=== PATIENT | male | born 1975 | race Hispanic/Latino ===

== ENCOUNTER 2022-01-20 15:16 | Emergency (ER) | payer SELFPAY ==
[2022-01-20] MEDS ORDERED: ONDANSETRON 4 MG/2 ML VIAL ONE (16:10)
[2022-01-20] MEDS ORDERED: MORPHINE 4 MG/ML SYR ONE (16:10)
[2022-01-20] MEDS ORDERED: NA CHLORIDE 0.9% 1,000 ML ONE ×2 (16:10→17:21)
[2022-01-20 16:32] LABS: Urine Blood Negative (Negative); Urine Glucose 2+ (Negative); Urine Protein Negative (Negative); Urine pH 5.5 (5.0-7.0)
[2022-01-20 16:34] LABS: Absolute Lymphocytes (CBC) 1.5 K/uL (0.7-4.9); Hematocrit 48.2 % (39.6-49.0); Lymphocytes % 30.5 % (15.3-44.8); MCV 88.7 fL (80-100); RBC Red Blood Cell Count 5.43 M/uL (4.33-5.43)
[2022-01-20 16:40] LABS: Urine Mucus Slight /HPF (None Seen); Urine RBC <5 /HPF (None Seen)
[2022-01-20 17:07] LABS: Albumin 3.7 g/dL (3.4-5.0); Bilirubin Total 1.1 mg/dL (0.2-1.0); Potassium 4.1 mmol/L (3.5-5.1); Protein, Total 7.5 g/dL (6.4-8.2)
--- NOTE | 2022-01-20 17:15 | RAD REPORT ---
EXAM DESCRIPTION: CT - Stone Protocol - 01/20/2022 4:47 pm CLINICAL HISTORY: Abdominal pain. Right flank pain COMPARISON: None. TECHNIQUE: Computed axial tomography of the abdomen pelvis was obtained without oral or IV contrast. Lack of IV and oral contrast limits evaluation of solid organs, appendix, bowel, and vessels. Powell l reformatted images were obtained and reviewed. All CT scans are performed using dose optimization technique as appropriate and may include automated exposure control or mA/KV adjustment according to patient size. FINDINGS: Tiny bilateral renal calculi. No hydronephrosis. A ureteral calculus is not seen. No bladd er calculus. Small left renal cyst. Partial duplication right pyelocalyceal structures The liver, spleen, pancreas and adrenals appear grossly normal There is no evidence of diverticulitis. The appendix appears normal 15 millimeter partial ground-glass opacity left lower lobe IMPRESSION: Tiny nonobstructing renal calculi 15 millimeter partial ground-glass opacities left lower lobe probably inflammatory/infectious. Howevmika r, as neoplasm can have a similar appearance it is recommended that patient have a followup CT chest 3 months
[2022-01-20] MEDS ORDERED: INSULIN -REGULAR HUMAN 50 UNIT/0.5 ML ML ONE (17:20)
--- NOTE | 2022-01-20 18:38 | RAD REPORT ---
EXAM DESCRIPTION: US - Abdomen Exam Limited - 01/20/2022 6:11 pm CLINICAL HISTORY: Abdominal pain. COMPARISON: None. FINDINGS: The gallbladder wall is not thickened. A gallstone is not seen. The biliary tree is normal caliber. IMPRESSION: Unremarkable gallbladder ultrasound.
--- NOTE | 2022-01-20 18:48 | EDPHYS ---
Physician Documentation [facility] Name: Sandeep Cowan Age: 46 yrs Sex: Male : 1975 Arrival Date: 01/20/2022 Time: 15:18 Bed 14 Private MD: ED Physician Luciano Garcia HPI: 01/20 16:05 This 46 yrs old Male presents to ER via Ambulatory with complaints of Possible cp Kidney Stone. 16:05 The patient complains of pain in the right flank. cp 16:05 The pain radiates to the abdomen. Onset: The symptoms/episode began/occurred this morning, about 0130. Associated signs and symptoms: Pertinent negatives: diarrhea, dysuria, fever, pain radiating to the lower extremities, vomiting. Severity of pain: in the emergency department the pain is unchanged despite home interventions. The patient has experienced similar episodes in the past, today's symptoms are similar, to when the patient was apparently diagnosed with kidney stones. Historical: - Allergies: 15:29 No Known Allergies; ss - Home Meds: 15:29 None [Active]; ss - PMHx: 15:29 Kidney stone; ss - PSHx: 15:29 Jaw reconstruction; ss - Immunization history:: Client reports having NOT received the Covid vaccine. - Social history:: Smoking status: Patient reports use of chewing tobacco. ROS: 16:10 Constitutional: Negative for body aches, chills, fever, poor PO intake. cp 16:10 Eyes: Negative for injury, pain, redness, and discharge. cp 16:10 ENT: Negative for drainage from ear(s), ear pain, sore throat, difficulty swallowing, difficulty handling secretions. 16:10 Cardiovascular: Negative for chest pain, palpitations. 16:10 Respiratory: Negative for cough, shortness of breath, wheezing. 16:10 Abdomen/GI: Negative for vomiting, diarrhea, constipation. 16:10 Back: Positive for flank pain, on the right. 16:10 : Negative for urinary symptoms. 16:10 Neuro: Negative for altered mental status, dizziness, headache, weakness. 16:10 All other systems are negative. Exam: 16:15 Constitutional: The patient appears in no acute distress, alert, awake, non-toxic, well cp developed, well nourished. 16:15 Head/Face: Normocephalic, atraumatic. cp 16:15 Eyes: Periorbital structures: appear normal, Conjunctiva: normal, no exudate, no injection, Sclera: no appreciated abnormality, Lids and lashes: appear normal, bilaterally. 16:15 ENT: External ear(s): are unremarkable, Nose: is normal, Mouth: Lips: moist, Oral mucosa: pink and intact, moist, Posterior pharynx: Airway: no evidence of obstruction, patent. 16:15 Chest/axilla: Inspection: normal. 16:15 Cardiovascular: Rate: normal, Rhythm: regular. 16:15 Respiratory: the patient does not display signs of respiratory distress, Respirations: normal, no use of accessory muscles, no retractions, labored breathing, is not present, Breath sounds: are clear throughout, no decreased breath sounds, no stridor, no wheezing. 16:15 Abdomen/GI: Inspection: abdomen appears normal, Bowel sounds: active, all quadrants, Palpation: soft, in all quadrants, moderate abdominal tenderness, in the anterior aspect of right lateral abdomen and posterior aspect of right lateral abdomen, rebound tenderness, is not appreciated, involuntary guarding, is not appreciated. 16:15 Neuro: Orientation: to person, place \T\ time. Mentation: is normal, Motor: moves all fours, strength is normal, Sensation: is normal, Gait: is steady, at a normal pace, without difficulty. Vital Signs: 15:28 Weight 95.25 kg; Height 6 ft. 2 in. (187.96 cm); Pain 5/10; ss 17:02 BP 144 / 106; Pulse 91; Resp 18 S; Pulse Ox 96% on R/A; kc6 17:47 BP 155 / 97; Pulse 99; Resp 18 S; Pulse Ox 99% on R/A; kc6 18:47 BP 155 / 97; Pulse 97; Resp 18 S; Pulse Ox 97% on R/A; kc6 15:28 Body Mass Index 26.96 (95.25 kg, 187.96 cm) ss MDM: 15:40 Patient medically screened. cp 18:47 Data reviewed: vital signs, nurses notes, lab test result(s), radiologic studies, CT cp scan. 18:47 Differential diagnosis: nephrolithiasis, pyelonephritis, UTI, testicular torsion. cp Counseling: I had a detailed discussion with the patient and/or guardian regarding: the historical points, exam findings, and any diagnostic results supporting the discharge/admit diagnosis, lab results, radiology results, to return to the emergency department if symptoms worsen or persist or if there are any questions or concerns that arise at home. Response to treatment: the patient's symptoms have markedly improved after treatment, VSS. Pain improved with meds. CT negative for ureter calculus at this time. Will discharge to home for continued monitoring. 12/ 16:01 Order name: CBC with Diff; Complete Time: 16:59 cp 12/ 16:59 Interpretation: Normal except: MN% 12.4. cp 12/ 16:01 Order name: CMP; Complete Time: 17:12 01/20 17:12 Interpretation: Normal except: NA 133; GLUC 436; ALK 121; BILIT 1.1; GLOB 3.8; A/G 1.0. 12/ 16:01 Order name: Lipase; Complete Time: 17:12 12 17:12 Interpretation: Reviewed. 12 16:01 Order name: Urine Microscopic Only; Complete Time: 16:59 cp 12 16:01 Order name: CT Stone Protocol; Complete Time: 17:32 cp 12/ 16:32 Order name: Urine Dipstick-Ancillary; Complete Time: 16:59 EDMS 01/20 17:12 Interpretation: Normal except: UGLUC 2+. 12/ 16:01 Order name: IV Saline Lock; Complete Time: 16:26 12 16:01 Order name: Labs collected and sent; Complete Time: 16:26 12 17:34 Order name: US Abdomen Limited: gallbladder; Complete Time: 18:43 cp 12/ 18:43 Interpretation: Report reviewed. 12 16:01 Order name: Urine Dipstick-Ancillary (obtain specimen); Complete Time: 16:45 cp 12/ 16:59 Order name: NPO; Complete Time: 17:00 01/20 18:44 Order name: Accucheck Blood Glucose; Complete Time: 18:53 cp Administered Medications: 16:26 Drug: NS 0.9% 1000 ml Route: IV; Rate: 1 bolus; Site: right forearm; kc6 16:26 Drug: Zofran (Ondansetron) 4 mg Route: IVP; Site: right forearm; kc6 17:03 Follow up: Response: No adverse reaction; Nausea is decreased [facility] 16:26 Drug: morphine 4 mg Route: IVP; Infused Over: 4 mins; Site: right forearm; kc6 17:03 Follow up: Response: No adverse reaction; Pain is decreased; RASS: Alert and Calm (0) [facility] 17:24 Drug: Insulin Regular Human 10 units {Co-Signature: [email or web address] (Willian Chowdhury RN).} Route: kc6 IVP; Site: right forearm; 17:42 Drug: NS 0.9% 1000 ml Route: IV; Rate: 1 bolus; Site: right forearm; kc6 Disposition Summary: 01/20/22 18:47 Discharge Ordered Location: Home cp Problem: new cp Symptoms: have improved cp Condition: Stable cp Diagnosis - Dorsalgia, unspecified cp - Diabetes mellitus due to underlying condition with hyperglycemia cp - Calculus of kidney - bilateral(01/20/22 18:49) cp Followup: cp - With: Private Physician - When: 2 - 3 days - Reason: Recheck today's complaints Discharge Instructions: - Discharge Summary Sheet cp - Acute Back Pain, Adult cp - Hyperglycemia cp - Kidney Stones cp - Blood Glucose Monitoring, Adult cp - Diabetes Mellitus and Nutrition, Adult cp - Dietary Guidelines to Help Prevent Kidney Stones cp Forms: - Medication Reconciliation Form cp - Thank You Letter cp - Antibiotic Education cp - Prescription Opioid Use cp Prescriptions: - Diclofenac Sodium 75 mg Oral Tablet Sustained Release - take 1 tablet by ORAL route 2 times per day; 30 tablet; Refills: 0, Product cp Selection Permitted - Zithromax Z-Jovan 250 mg Oral Tablet - take 1 tablet by ORAL route as directed for 5 days Day 1 - take two (2) tablets cp one time. Day 2, 3, 4 , 5 take one (1) tablet once daily.; 6 tablet; Refills: 0, Product Selection Permitted - Metformin 1,000 mg Oral Tablet - take 0.5 tablet by ORAL route every 12 hours with morning and evening meals; 20 cp tablet; Refills: 0, Product Selection Permitted Signatures: Dispatcher [employer] Ekaterina Medina RN RN ss Page, Corey, PA PA cp Rosalba Shahid RN RN kc6 Willian Chowdhury RN jd3 Corrections: (The following items were deleted from the chart) 17:12 17:12 Normal except: NA 133; GLUC 436; ALK 121; BILIT 1.1. cp cp 18:49 18:48 Calculus of kidney cp cp
--- NOTE | 2022-01-20 18:48 | ER ---
Nurse's Notes [facility] Name: Sandeep Cowan Age: 46 yrs Sex: Male : 1975 Arrival Date: 01/20/2022 Time: 15:18 Bed 14 Private MD: Diagnosis: Dorsalgia, unspecified;Diabetes mellitus due to underlying condition with hyperglycemia;Calculus of kidney-bilateral Presentation: 01/20 15:28 Chief complaint: Patient states: R flank pain that began at 0130 this morning. Pt ss reports that this pain feels similar to his previous kidney stone. Pt states, "I know I passed one because I felt it move down. I know I have some that were in my kidney that they couldn't break up.". Coronavirus screen: Client denies travel out of the [place] in the last 14 days. Ebola Screen: Patient denies exposure to infectious person. Patient denies travel to an Ebola-affected area in the 21 days before illness onset. Initial Sepsis Screen: Does the patient meet any 2 criteria? No. Patient's initial sepsis screen is negative. Does the patient have a suspected source of infection? No. Patient's initial sepsis screen is negative. Risk Assessment: Do you want to hurt yourself or someone else? Patient reports no desire to harm self or others. Onset of symptoms was January 20, 2022. 15:28 Method Of Arrival: Ambulatory 15:28 Acuity: MARTHA 3 ss Historical: - Allergies: 15:29 No Known Allergies; ss - Home Meds: 15:29 None [Active]; ss - PMHx: 15:29 Kidney stone; ss - PSHx: 15:29 Jaw reconstruction; ss - Immunization history:: Client reports having NOT received the Covid vaccine. - Social history:: Smoking status: Patient reports use of chewing tobacco. Screenin:52 Abuse screen: Denies threats or abuse. Denies injuries from another. Nutritional kc6 screening: No deficits noted. Tuberculosis screening: No symptoms or risk factors identified. Fall Risk None identified. Assessment: 15:49 General: Appears in no apparent distress. uncomfortable, Behavior is calm, cooperative, kc6 appropriate for age. Pain: Complains of pain in right low back Pain does not radiate. Pain currently is 6 out of 10 on a pain scale. Quality of pain is described as sharp, stabbing, Pain began gradually, Is intermittent, Alleviated by rest, Aggravated by increased activity, repositioning, Noted to be grimacing, Also complains of no other associated symptoms. Neuro: Raphael Agitation-Sedation Scale (RASS): 0 - Alert and Calm Level of Consciousness is awake, alert, obeys commands, Oriented to person, place, time, situation, Appropriate for age. Cardiovascular: Heart tones S1 S2 present Capillary refill < 3 seconds. Respiratory: Airway is patent Trachea midline Respiratory effort is even, unlabored, Respiratory pattern is regular, symmetrical, Breath sounds are clear bilaterally. GI: Abdomen is flat, non-distended, Bowel sounds present X 4 quads. Abd is soft and non tender X 4 quads. Reports nausea, vomiting. : No signs and/or symptoms were reported regarding the genitourinary system. EENT: No signs and/or symptoms were reported regarding the EENT system. Derm: No signs and/or symptoms reported regarding the dermatologic system. Skin is intact, Skin is pink, warm \\T\\ dry. Musculoskeletal: No signs and/or symptoms reported regarding the musculoskeletal system. Circulation, motion, and sensation intact. Capillary refill < 3 seconds, Range of motion: intact in all extremities. 16:49 Reassessment: Patient appears in no apparent distress at this time. No changes from kc6 previously documented assessment. Patient and/or family updated on plan of care and expected duration. Pain level reassessed. Patient is alert, oriented x 3, equal unlabored respirations, skin warm/dry/pink. 17:47 Reassessment: Patient appears in no apparent distress at this time. No changes from kc6 previously documented assessment. Patient and/or family updated on plan of care and expected duration. Pain level reassessed. Patient is alert, oriented x 3, equal unlabored respirations, skin warm/dry/pink. 18:47 Reassessment: Patient appears in no apparent distress at this time. No changes from kc6 previously documented assessment. Patient and/or family updated on plan of care and expected duration. Pain level reassessed. Patient is alert, oriented x 3, equal unlabored respirations, skin warm/dry/pink. Vital Signs: 15:28 Weight 95.25 kg; Height 6 ft. 2 in. (187.96 cm); Pain 5/10; ss 17:02 BP 144 / 106; Pulse 91; Resp 18 S; Pulse Ox 96% on R/A; kc6 17:47 BP 155 / 97; Pulse 99; Resp 18 S; Pulse Ox 99% on R/A; kc6 18:47 BP 155 / 97; Pulse 97; Resp 18 S; Pulse Ox 97% on R/A; kc6 15:28 Body Mass Index 26.96 (95.25 kg, 187.96 cm) ED Course: 15:18 Patient arrived in ED. mr 15:20 Angelito Smyth PA is PHCP. cp 15:20 Luciano Garcia MD is Attending Physician. cp 15:29 Triage completed. ss 15:29 Arm band placed on right wrist. ss 15:46 Rosalba Shahid, FABY is Primary Nurse. kc6 16:26 CBC with Diff Sent. kc6 16:26 CMP Sent. kc6 16:26 Lipase Sent. kc6 16:26 Inserted saline lock: 20 gauge in right forearm, using aseptic technique. Blood kc6 collected. 16:49 CT Stone Protocol In Process Unspecified. EDMS 18:13 US Abdomen Limited: gallbladder In Process Unspecified. EDMS 19:01 No provider procedures requiring assistance completed. IV discontinued, intact, kc6 bleeding controlled, No redness/swelling at site. Pressure dressing applied. 19:02 Patient has correct armband on for positive identification. Bed in low position. Call kc6 light in reach. Side rails up X 1. Administered Medications: 16:26 Drug: NS 0.9% 1000 ml Route: IV; Rate: 1 bolus; Site: right forearm; kc6 16:26 Drug: Zofran (Ondansetron) 4 mg Route: IVP; Site: right forearm; kc6 17:03 Follow up: Response: No adverse reaction; Nausea is decreased kc6 16:26 Drug: morphine 4 mg Route: IVP; Infused Over: 4 mins; Site: right forearm; kc6 17:03 Follow up: Response: No adverse reaction; Pain is decreased; RASS: Alert and Calm (0) kc6 17:24 Drug: Insulin Regular Human 10 units {Co-Signature: [email or web address] (Willian Chowdhury RN).} Route: kc6 IVP; Site: right forearm; 17:42 Drug: NS 0.9% 1000 ml Route: IV; Rate: 1 bolus; Site: right forearm; kc6 Medication: 19:02 VIS not applicable for this client. kc6 Outcome: 18:47 Discharge ordered by . jeff 19:01 Discharged to home ambulatory. kc6 19:01 Condition: stable 19:01 Discharge instructions given to patient, Instructed on discharge instructions, follow up and referral plans. medication usage, Demonstrated understanding of instructions, follow-up care, medications, Prescriptions given X 3. 19:03 Patient left the ED. kc6 Signatures: Dispatcher [employer] DEONUT Connie Red Shelby, RN RN Angelito Wright, HARRIS PA Rosalba Young RN RN kc6 Willian Chowdhury RN jd3
[2022-01-20 23:55] VITALS: BP 155/97
[2022-01-21 00:16] VITALS: O2SAT 97
== END 2022-01-20 19:03 | disposition home or self-care (01) ==
LOC: ER 15:16
DX: N20.0 Calculus of kidney (principal); E11.65 Type 2 diabetes mellitus with hyperglycemia
CPT/HCPCS: 36415; 74176; 76377; 76705; 80053; 81003; 81015; 82947; 83690; 85025; 96374; 96375; 99284; J1815; J2405; J7030

== ENCOUNTER 2022-02-01 14:43 | Emergency (ER) | payer SELFPAY ==
[2022-02-01] MEDS ORDERED: KETOROLAC 30 MG/ML INJ ONE (15:13)
[2022-02-01] MEDS ORDERED: methocarbamoL 750 MG TAB ONE (15:13)
--- NOTE | 2022-02-01 15:30 | ER ---
Nurse's Notes [facility] Name: Sandeep Cowan Age: 46 yrs Sex: Male : 1975 Arrival Date: 02/01/2022 Time: 14:45 Bed 8 Private MD: Diagnosis: Muscle spasm of back Presentation: 02/01 14:54 Chief complaint: Low back pain that radiates to left leg x 3 days. Coronavirus screen: hb At this time, the client does not indicate any symptoms associated with coronavirus-19. Ebola Screen: No symptoms or risks identified at this time. Initial Sepsis Screen: Does the patient meet any 2 criteria? No. Patient's initial sepsis screen is negative. Does the patient have a suspected source of infection? No. Patient's initial sepsis screen is negative. Risk Assessment: Do you want to hurt yourself or someone else? Patient reports no desire to harm self or others. Onset of symptoms was January 29, 2022. 14:54 Method Of Arrival: Ambulatory hb 14:54 Acuity: MARTHA 4 hb Historical: - Allergies: 14:55 No Known Allergies; hb - PMHx: 14:55 Kidney stone; hb - PSHx: 14:55 jaw reconstruction; hb - Immunization history:: Adult Immunizations up to date. - Social history:: Smoking status: Patient denies any tobacco usage or history of. Screenin:27 [facility] ED Fall Risk Assessment (Adult) History of falling in the last 3 months, ph including since admission No falls in past 3 months (0 pts) Confusion or Disorientation No (0 pts) Intoxicated or Sedated No (0 pts) Impaired Gait No (0 pts) Mobility Assist Device Used No (0 pt) Altered Elimination No (0 pt) Score/Fall Risk Level 0 - 2 = Low Risk Maintained a safe environment. Abuse screen: Denies threats or abuse. Denies injuries from another. Nutritional screening: No deficits noted. Tuberculosis screening: No symptoms or risk factors identified. Assessment: 15:28 General: Appears in no apparent distress. uncomfortable, slender, well groomed, ph Behavior is calm, cooperative, appropriate for age. Pain: Complains of pain in left low back Pain radiates to left leg. Neuro: Level of Consciousness is awake, alert, obeys commands, Oriented to person, place, time, situation. Respiratory: Airway is patent Respiratory effort is even, unlabored. Derm: Skin is healthy with good turgor, Skin is pink, warm \T\ dry. Musculoskeletal: Circulation, motion, and sensation intact. Range of motion: intact in all extremities. Vital Signs: 14:54 BP 181 / 112; Pulse 89; Resp 16; Temp 97.8; Pulse Ox 97% on R/A; Weight 96.16 kg; hb Height 6 ft. 1 in. (185.42 cm); Pain 9/10; 16:13 BP 160 / 98; Pulse 87; Resp 18; Temp 97.9; Pulse Ox 99% on R/A; ph 14:54 Body Mass Index 27.97 (96.16 kg, 185.42 cm) hb ED Course: 14:45 Patient arrived in ED. rg4 14:49 Kerrie Martell MD is Attending Physician. sp3 14:52 Priya Clay, RN is Primary Nurse. ph 14:55 Triage completed. hb 14:55 Arm band placed on. hb 15:28 Patient has correct armband on for positive identification. Bed in low position. Call ph light in reach. Door closed. Noise minimized. 16:13 No provider procedures requiring assistance completed. Patient did not have IV access ph during this emergency room visit. Administered Medications: 15:05 Not Given (Pharmacy dose not have): Orphenadrine 60 mg IM once sp3 15:28 Drug: Ketorolac 60 mg Route: IM; Site: left gluteus; ph 16:12 Follow up: Response: No adverse reaction ph 15:28 Drug: Robaxin (methocarbamol) 750 mg Route: PO; ph 16:12 Follow up: Response: No adverse reaction ph 16:12 Drug: Lidoderm Patch 5 % (700 mg/patch) 1 patches {Note: L lower back.} Route: Topical; ph Site: affected area; Medication: 15:28 VIS not applicable for this client. ph Outcome: 15:30 Discharge ordered by . sp3 16:13 Discharged to home ambulatory. ph 16:13 Condition: good 16:13 Discharge instructions given to patient, Instructed on discharge instructions, follow up and referral plans. medication usage, Demonstrated understanding of instructions, follow-up care, medications, Prescriptions given X 2. 16:13 Patient left the ED. ph Signatures: ClayPriya RN RN ph Baxter, Heather, RN RN Allegra Solomon rg4 Kerrie Martell MD MD sp3
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
[2022-02-01] MEDS ORDERED: LIDOCAINE 4% PATCH ONE (16:06)
[2022-02-01 16:35] VITALS: BP 160/98; TEMP 97.9; O2SAT 99
== END 2022-02-01 16:13 | disposition home or self-care (01) ==
LOC: ER 14:43
DX: M62.830 Muscle spasm of back (principal); Z87.442 Personal history of urinary calculi
CPT/HCPCS: 96372; 99283; J2001

== ENCOUNTER 2022-03-08 14:59 | Emergency (ER) | payer SELFPAY ==
[2022-03-08 16:29] LABS: Absolute Lymphocytes (CBC) 2.2 K/uL (0.7-4.9); Hematocrit 49.8 % (39.6-49.0); Lymphocytes % 33.1 % (15.3-44.8); MCV 90.4 fL (80-100); MPV 8.4 fL (7.6-11.3); RBC Red Blood Cell Count 5.51 M/uL (4.33-5.43)
[2022-03-08 17:04] LABS: ALT/SGPT 29 U/L (16-61); Albumin 3.8 g/dL (3.4-5.0); Alkaline Phosphatase 123 U/L (45-117); BUN Blood Urea Nitrogen 14 mg/dL (7-18); Bicarbonate 29 mmol/L (21-32); Glomerular Filtration Rate 83 ml/min (=/>90); Lipase 121 U/L (73-393); Protein, Total 7.6 g/dL (6.4-8.2); Sodium Level 136 mmol/L (136-145)
[2022-03-08 17:06] LABS: AST/SGOT 14 U/L (15-37)
[2022-03-08 17:07] LABS: Glucose Level 425 mg/dL (74-106)
[2022-03-08] MEDS ORDERED: NA CHLORIDE 0.9% 1,000 ML ONE (17:11)
[2022-03-08] MEDS ORDERED: KETOROLAC 30 MG/ML INJ ONE (17:11)
[2022-03-08] MEDS ORDERED: GABAPENTIN 300 MG CAP ONE (17:11)
[2022-03-08] MEDS ORDERED: INSULIN -REGULAR HUMAN 50 UNIT/0.5 ML ML ONE (17:11)
--- NOTE | 2022-03-08 18:28 | RAD REPORT ---
EXAM DESCRIPTION: US - Extrem Venous W Compress Saturnino - 03/08/2022 6:05 pm CLINICAL HISTORY: PAIN Bilateral leg edema and swelling. COMPARISON: No comparisons TECHNIQUE: Real-time sonographic interrogation of the left and right lower extremity deep venous sys tems was performed. FINDINGS: Normal compressibility, flow augmentation, phasic flow and spontaneous flow is identified in both the left and right lower extremity deep venous systems. IMPRESSION: No sonographic evidence of left or right lower extremity deep venous thrombosis.
--- NOTE | 2022-03-08 18:28 | RAD REPORT ---
EXAM DESCRIPTION: US - Lower Extremity Arterial Bilat - 03/08/2022 6:05 pm CLINICAL HISTORY: PAIN COMPARISON: No comparisons TECHNIQUE: Grayscale, color, power and spectral Doppler bilateral lower extremity arterial systems. FINDINGS: Triphasic waveforms are seen throughout both lower extremity arterial systems to the level of the prem salis pedis arteries. No significant stenosis or occlusion seen. IMPRESSION: No evidence of significant peripheral vascular disease.
--- NOTE | 2022-03-08 19:04 | EDPHYS ---
Physician Documentation [facility] Name: Sandeep Cowan Age: 46 yrs Sex: Male : 1975 Arrival Date: 03/08/2022 Time: 15:01 Bed 5 Private MD: ED Physician Romeo Alonso HPI: 03/08 16:00 This 46 yrs old Male presents to ER via Ambulatory with complaints of feet cp numbness. 16:00 The patient presents with pain, numbness. The complaints affect the left foot, right cp foot. 16:00 Onset: The symptoms/episode began/occurred for months. Associated signs and symptoms: cp Pertinent negatives: fever, rash, warmth. Severity of symptoms: in the emergency department the symptoms are unchanged, despite home interventions. Patient reports increasing pain and numbness to bilateral feet over past several months. Recently released from skilled nursing and has been off meds for diabetes. Pain described as pins and needles. Historical: - Allergies: 15:57 No Known Allergies; vg1 - Home Meds: 15:57 Metformin Oral [Active]; vg1 - PMHx: 15:57 Kidney stone; Hypertensive disorder; Diabetes mellitus; Bipolar disorder; vg1 - PSHx: 15:57 jaw reconstruction; vg1 - Immunization history:: Client reports having NOT received the Covid vaccine. - Social history:: Smoking status: Patient denies any tobacco usage or history of. ROS: 16:05 Constitutional: Negative for body aches, chills, fever, poor PO intake. cp 16:05 Neuro: Positive for numbness, of the right foot and left foot. cp 16:05 Neck: Negative for pain with movement, pain at rest, stiffness. cp 16:05 Cardiovascular: Negative for chest pain, edema, palpitations. 16:05 Respiratory: Negative for cough, shortness of breath, wheezing. 16:05 Back: Negative for pain at rest, pain with movement. 16:05 All other systems are negative. Exam: 16:10 Constitutional: The patient appears in no acute distress, alert, awake, cp non-diaphoretic, non-toxic, well developed, well nourished, uncomfortable. 16:10 Head/Face: Normocephalic, atraumatic. cp 16:10 Eyes: Periorbital structures: appear normal, Conjunctiva: normal, no exudate, no injection, Sclera: no appreciated abnormality, Lids and lashes: appear normal, bilaterally. 16:10 ENT: External ear(s): are unremarkable, Nose: is normal, Mouth: Lips: moist, Oral mucosa: moist, Posterior pharynx: Airway: no evidence of obstruction, patent. 16:10 Chest/axilla: Inspection: normal. 16:10 Cardiovascular: Rate: normal, Rhythm: regular, Pulses: Pulses are 2+ in right dorsalis pedis artery and left dorsalis pedis artery. Edema: is not appreciated. 16:10 Respiratory: the patient does not display signs of respiratory distress, Respirations: normal, no use of accessory muscles, no retractions, labored breathing, is not present. 16:10 Abdomen/GI: Inspection: abdomen appears normal, Palpation: abdomen is soft and non-tender, in all quadrants. 16:10 Back: pain, is absent, ROM is normal. 16:10 Musculoskeletal/extremity: Extremities: noted in the right foot: pain, noted in the left foot: pain, the right foot and left foot Severe pain noted. 16:10 Skin: cellulitis, is not appreciated, no rash present. 16:10 Neuro: Orientation: to person, place \T\ time. Mentation: is normal, Motor: moves all fours, strength is normal. Vital Signs: 15:49 BP 156 / 101; Pulse 109; Resp 18; Temp 98.8(TE); Pulse Ox 99% on R/A; Weight 92.99 kg; vg1 Height 6 ft. 3 in. (190.50 cm); Pain 8/10; 17:14 BP 149 / 100; Pulse 87; Resp 18; Pulse Ox 100% on R/A; Pain 0/10; ld1 18:14 BP 144 / 93; Pulse 83; Resp 18; Pulse Ox 100% on R/A; ld1 18:57 BP 147 / 93; Pulse 80; Resp 18; Temp 98.3(O); Pulse Ox 99% on R/A; Pain 0/10; ld1 19:15 BP 141 / 94; Pulse 82; Resp 18; Temp 98; Pulse Ox 98% on R/A; Pain 0/10; pf1 15:49 Body Mass Index 25.62 (92.99 kg, 190.50 cm) vg1 MDM: 16:06 Patient medically screened. cp 17:00 Differential diagnosis: fracture, cellulitis, DVT, peripheral neuropathy. cp 19:03 Data reviewed: vital signs, nurses notes, lab test result(s), radiologic studies, plain cp films, ultrasound. 19:03 Consideration of Admission/Observation Escalation of care including cp admission/observation considered. I considered the following discharge prescriptions or medication management in the emergency department Medications were administered in the Emergency Department. See MAR. Care significantly affected by the following chronic conditions: Diabetes, Hypertension. Care significantly affected by the following Social Determinants of Health: Poor access to healthcare and/or lack of insurance. Response to treatment: the patient's symptoms have markedly improved after treatment, and as a result, I will discharge patient. 03/08 15:53 Order name: CBC with Diff; Complete Time: 16:49 03/08 16:49 Interpretation: Normal except: RBC 5.51; HCT 49.8. cp 03/08 15:53 Order name: CMP; Complete Time: 17:07 03/08 15:53 Order name: Lipase; Complete Time: 17:07 cp 03/08 15:53 Order name: Ketone, Serum; Complete Time: 17:07 cp 03/08 16:08 Order name: Glucose, Ancillary Testing; Complete Time: 16:49 EDMS 03/08 19:10 Order name: Glucose, Ancillary Testing EDND 03/08 15:53 Order name: Accucheck Blood Glucose; Complete Time: 16:00 cp 03/08 17:10 Order name: US Extremity Venous W Compression Saturnino; Complete Time: 18:50 cp 03/08 18:51 Interpretation: Report reviewed. 03/08 17:10 Order name: US LE Arterial Bilateral; Complete Time: 18:50 cp 03/08 15:53 Order name: IV Saline Lock; Complete Time: 16:21 cp 03/08 15:53 Order name: Labs collected and sent; Complete Time: 16:21 cp 03/08 18:51 Order name: Accucheck Blood Glucose; Complete Time: 18:55 cp Administered Medications: 17:13 Drug: NS 0.9% 1000 ml Route: IV; Rate: 1 bolus; Site: right antecubital; ld1 18:56 Follow up: Response: No adverse reaction ld1 19:00 Follow up: IV Status: Completed infusion; IV Intake: 1000ml pf1 17:13 Drug: Neurontin (gabapentin) 300 mg Route: PO; ld1 18:56 Follow up: Response: No adverse reaction ld1 17:13 Drug: Ketorolac 15 mg Route: IVP; Site: right antecubital; ld1 18:56 Follow up: Response: No adverse reaction ld1 17:14 Drug: Insulin Regular Human 10 units {Co-Signature: aa5 (Dania Hernandez RN).} Route: ld1 IVP; Site: right antecubital; 18:56 Follow up: Response: No adverse reaction ld1 19:11 Drug: metFORMIN 500 mg Route: PO; pf1 19:31 Follow up: Response: No adverse reaction pf1 Disposition Summary: 03/08/22 19:03 Discharge Ordered Location: Home cp Problem: chronic cp Symptoms: have improved cp Condition: Stable cp Diagnosis - Diabetes mellitus due to underlying condition with hyperglycemia cp - Type 2 diabetes mellitus with diabetic neuropathy, unspecified cp Followup: cp - With: Private Physician - When: 2 - 3 days - Reason: Recheck today's complaints Discharge Instructions: - Discharge Summary Sheet cp - Diabetes Mellitus and Foot Care cp - Hyperglycemia cp - Neuropathic Pain cp - Form - Daily Diabetes Record cp - Blood Glucose Monitoring, Adult cp - Diabetes Mellitus and Nutrition, Adult cp Forms: - Medication Reconciliation Form cp - Thank You Letter cp - Antibiotic Education cp - Prescription Opioid Use cp Prescriptions: - Metformin 1,000 mg Oral Tablet - take 0.5 tablet by ORAL route every 12 hours with morning and evening meals; 20 cp tablet; Refills: 0, Product Selection Permitted - Diclofenac Sodium 75 mg Oral tablet,delayed release (DR/EC) - take 1 tablet by ORAL route 2 times per day; 20 tablet; Refills: 0, Product cp Selection Permitted Addendum: 03/10/2022 01:06 Co-signature as Attending Physician, Romeo Alonso MD I reviewed the patient's care r n provided by the Advanced Practice Provider and agree with the diagnosis and treatment plan. Signatures: Dispatcher [employer] EDRomeo Canales MD MD rn Page, Corey, PA PA cp Garcia, Victoria, RN RN vg1 Faby Lemon RN RN ld1 Shari lovelace RN RN pf1 Dania Hernandez RN aa5
--- NOTE | 2022-03-08 19:04 | ER ---
Nurse's Notes [facility] Name: Sandeep Cowan Age: 46 yrs Sex: Male : 1975 Arrival Date: 03/08/2022 Time: 15:01 Bed 5 Private MD: Diagnosis: Diabetes mellitus due to underlying condition with hyperglycemia;Type 2 diabetes mellitus with diabetic neuropathy, unspecified Presentation: 03/08 15:49 Chief complaint: Patient states: pins and needles in TREVOR feet x 3 months, hx of DM, vg1 appears to have no sores to TREVOR feet. Coronavirus screen: Vaccine status: Patient reports being unvaccinated. Ebola Screen: Patient negative for fever greater than or equal to 101.5 degrees Fahrenheit, and additional compatible Ebola Virus Disease symptoms Patient denies exposure to infectious person. Initial Sepsis Screen: Does the patient meet any 2 criteria? HR > 90 bpm. Does the patient have a suspected source of infection? No. Patient's initial sepsis screen is negative. Risk Assessment: Do you want to hurt yourself or someone else? Patient reports no desire to harm self or others. Onset of symptoms was March 08, 2022. 15:49 Method Of Arrival: Ambulatory 1 15:49 Acuity: MARTHA 3 vg1 Triage Assessment: 15:57 General: Appears uncomfortable, Behavior is cooperative. Pain: Complains of pain in vg1 right foot and left foot Pain currently is 7 out of 10 on a pain scale. Pain began today. Neuro: Level of Consciousness is awake, alert, obeys commands, Oriented to person, place, time, situation. Respiratory: Airway is patent Respiratory effort is even, unlabored. Derm: Skin is pink, warm \T\ dry. Historical: - Allergies: 15:57 No Known Allergies; vg1 - Home Meds: 15:57 Metformin Oral [Active]; vg1 - PMHx: 15:57 Kidney stone; Hypertensive disorder; Diabetes mellitus; Bipolar disorder; vg1 - PSHx: 15:57 jaw reconstruction; vg1 - Immunization history:: Client reports having NOT received the Covid vaccine. - Social history:: Smoking status: Patient denies any tobacco usage or history of. Screenin:14 [facility] ED Fall Risk Assessment (Adult) History of falling in the last 3 months, ld1 including since admission No falls in past 3 months (0 pts). Abuse screen: Denies threats or abuse. Denies injuries from another. Nutritional screening: No deficits noted. Tuberculosis screening: No symptoms or risk factors identified. Assessment: 17:14 General: Appears in no apparent distress. comfortable, Behavior is calm, cooperative, ld1 appropriate for age. Pain: Denies pain. Neuro: Level of Consciousness is awake, alert, obeys commands, Oriented to person, place, time, situation. Cardiovascular: Capillary refill < 3 seconds Patient's skin is warm and dry. Respiratory: Airway is patent Respiratory effort is even, unlabored. GI: Abdomen is flat, non-distended. : No signs and/or symptoms were reported regarding the genitourinary system. EENT: No signs and/or symptoms were reported regarding the EENT system. Derm: No signs and/or symptoms reported regarding the dermatologic system. Musculoskeletal: No signs and/or symptoms reported regarding the musculoskeletal system. 18:14 Reassessment: Patient appears in no apparent distress at this time. Patient and/or ld1 family updated on plan of care and expected duration. Pain level reassessed. Patient is alert, oriented x 3, equal unlabored respirations, skin warm/dry/pink. 18:57 Reassessment: Patient appears in no apparent distress at this time. No changes from ld1 previously documented assessment. Patient and/or family updated on plan of care and expected duration. Pain level reassessed. Patient is alert, oriented x 3, equal unlabored respirations, skin warm/dry/pink. Patient denies pain at this time. 19:15 General: Appears in no apparent distress. comfortable, well groomed, well developed, pf1 Behavior is calm, cooperative, appropriate for age, quiet. 19:15 Pain: Denies pain. Neuro: No deficits noted. Level of Consciousness is awake, alert, pf1 obeys commands, Oriented to person, place, time, situation. Cardiovascular: No deficits noted. Capillary refill < 3 seconds Patient's skin is warm and dry. Respiratory: Airway is patent Trachea midline Respiratory effort is even, unlabored, Respiratory pattern is regular, symmetrical. GI: No deficits noted. Abdomen is flat, non-distended. : No deficits noted. No signs and/or symptoms were reported regarding the genitourinary system. EENT: No deficits noted. No signs and/or symptoms were reported regarding the EENT system. Derm: No deficits noted. No signs and/or symptoms reported regarding the dermatologic system. Musculoskeletal: No deficits noted. No signs and/or symptoms reported regarding the musculoskeletal system. Vital Signs: 15:49 BP 156 / 101; Pulse 109; Resp 18; Temp 98.8(TE); Pulse Ox 99% on R/A; Weight 92.99 kg; vg1 Height 6 ft. 3 in. (190.50 cm); Pain 8/10; 17:14 BP 149 / 100; Pulse 87; Resp 18; Pulse Ox 100% on R/A; Pain 0/10; ld1 18:14 BP 144 / 93; Pulse 83; Resp 18; Pulse Ox 100% on R/A; ld1 18:57 BP 147 / 93; Pulse 80; Resp 18; Temp 98.3(O); Pulse Ox 99% on R/A; Pain 0/10; ld1 19:15 BP 141 / 94; Pulse 82; Resp 18; Temp 98; Pulse Ox 98% on R/A; Pain 0/10; pf1 15:49 Body Mass Index 25.62 (92.99 kg, 190.50 cm) vg1 ED Course: 15:01 Patient arrived in ED. am2 15:09 Angelito Smyth PA is PHCP. cp 15:09 Romeo Alonso MD is Attending Physician. cp 15:14 Romeo Alonso MD is Attending Physician. cp 15:57 Triage completed. vg1 15:57 Arm band placed on. vg1 16:27 Initial lab(s) drawn, by co, sent to lab. Inserted saline lock: 20 gauge in right bc6 antecubital area, using aseptic technique. 17:04 Faby Lemon, RN is Primary Nurse. ld1 17:14 Patient has correct armband on for positive identification. Placed in gown. Bed in low ld1 position. Call light in reach. Side rails up X2. credit portfolio manager on. Pulse ox on. NIBP on. Door closed. Noise minimized. Warm blanket given. 17:14 No provider procedures requiring assistance completed. ld1 18:07 US Extremity Venous W Compression Trevor In Process Unspecified. EDMS 18:07 US LE Arterial Bilateral In Process Unspecified. EDMS 19:29 IV discontinued, intact, bleeding controlled, No redness/swelling at site. pf1 Administered Medications: 17:13 Drug: NS 0.9% 1000 ml Route: IV; Rate: 1 bolus; Site: right antecubital; ld1 18:56 Follow up: Response: No adverse reaction ld1 19:00 Follow up: IV Status: Completed infusion; IV Intake: 1000ml pf1 17:13 Drug: Neurontin (gabapentin) 300 mg Route: PO; ld1 18:56 Follow up: Response: No adverse reaction ld1 17:13 Drug: Ketorolac 15 mg Route: IVP; Site: right antecubital; ld1 18:56 Follow up: Response: No adverse reaction ld1 17:14 Drug: Insulin Regular Human 10 units {Co-Signature: aa5 (Dania Hernandez RN).} Route: ld1 IVP; Site: right antecubital; 18:56 Follow up: Response: No adverse reaction ld1 19:11 Drug: metFORMIN 500 mg Route: PO; pf1 19:31 Follow up: Response: No adverse reaction pf1 Medication: 17:14 VIS not applicable for this client. ld1 Intake: 19:00 IV: 1000ml; Total: 1000ml. pf1 Outcome: 19:03 Discharge ordered by MD. cp 19:32 Discharged to home ambulatory, with family. pf1 19:32 Condition: stable 19:32 Discharge instructions given to patient, family, Instructed on discharge instructions, follow up and referral plans. medication usage, Demonstrated understanding of instructions, follow-up care, medications, Prescriptions given X 2. 19:32 Patient left the ED. pf1 Signatures: Dispatcher [employer] EDMS Angelito Smyth PA PA cp Moreno, Amanda amKalli Neves, RN RN vg1 Faby Lemon RN RN ld1 Shari lovelace RN RN pf1 Dinorah Pedroza 6 Dania Hernandez RN aa5
[2022-03-08] MEDS ORDERED: METFORMIN HCL 500 MG TAB ONE (19:14)
[2022-03-08 20:30] VITALS: BP 141/94; TEMP 98; O2SAT 98
== END 2022-03-08 19:32 | disposition home or self-care (01) ==
LOC: ER 14:59
DX: E11.65 Type 2 diabetes mellitus with hyperglycemia (principal); E11.40 Type 2 diabetes mellitus with diabetic neuropathy, unspecified; I10 Essential (primary) hypertension
CPT/HCPCS: 36415; 80053; 82010; 82947; 83690; 85025; 93925; 93970; 96361; 96374; 96375; 99284; J1815; J7030

== ENCOUNTER 2022-07-15 14:36 | Emergency (ER) | payer BC ==
--- OUTSIDE RECORDS SUMMARY | 2022-07-15 15:18 | XMS REPORT | Continuity of Care Document ---
:1975 Author Organization [facility] Address [address] [facility] [address] [place] [address] Care Team Providers Name Role Phone CONRADO JIN Attending Clinician Unavailable SEAN MORAN Attending Clinician Unavailable KAYDEN OLIVARES Attending Clinician Unavailable ALIVIA GODDARD Attending Clinician Unavailable Payers Payer Name Policy Type Policy Number Effective Date Expiration Date S ource Problems This patient has no known problems. Allergies, Adverse Reactions, Alerts This patient has no known allergies or adverse reactions. Medications This patient has no known medications. Procedures This patient has no known procedures. Encounters Start End Encounter Admission Attending Care Care Encounter Source Date/Time Date/Time Type Type Clinicians Facility Department ID 2022-05-26 2022-05-26 Outpatient ANNABEL [facility] [id number] [place] 10:39:29 11:40:47 CONRADO Shearer 2022-05-26 2022-05-26 Emergency [facility] [id number] [place] 09:47:00 09:52:00 [facility] 2022-05-13 2022-05-13 Emergency [facility] [id number] [place] 14:09:00 14:10:00 [facility] 2022-05-08 2022-05-08 Emergency [facility] [id number] [place] 04:52:00 08:37:00 [facility] 2022-05-07 2022-05-07 Outpatient DEAN [facility] [id number] [place] 14:11:46 14:56:02 SEAN abrragan 2022-05-07 2022-05-07 Emergency [facility] [id number] [place] 10:05:00 10:12:00 [facility] 2022-05-06 2022-05-06 Outpatient MARSHALL [facility] [id number] [place] 14:49:11 23:59:00 [facility] 2022-05-04 2022-05-05 Emergency NITZA [facility] [id number] [place] 16:40:00 02:52:00 [facility] 2022-05-04 2022-05-04 Outpatient [facility] [id number] [place] 15:23:01 16:39:00 Health Results This patient has no known results.
[2022-07-15] MEDS ORDERED: IBUPROFEN 400 MG TAB ONE (15:45)
--- NOTE | 2022-07-15 15:55 | RAD REPORT ---
EXAM DESCRIPTION: RAD - Forearm Right - 07/15/2022 3:40 pm CLINICAL HISTORY: PAIN COMPARISON: No comparisons TECHNIQUE: Right forearm, 2 views. FINDINGS: No fracture is identified. There is no dislocation or periosteal reaction noted. No foreign body. Soft tissue swelling about the dorsum of the forearm. IMPRESSION: No acute osseous abnormality. Soft tissue swelling about the dorsum of the right forearm .
--- NOTE | 2022-07-15 16:03 | ER ---
Nurse's Notes [facility] Name: Sandeep Cowan Age: 46 yrs Sex: Male : 1975 Arrival Date: 07/15/2022 Time: 14:36 Bed DX3 Private MD: Diagnosis: Contusion of right wrist Presentation: 07/15 14:46 Chief complaint: Patient states: "2 hours ago, a bed fell on my right wrist. I was mb9 trying to put a brace in and it fell on my arm when I was blocking it to hit my head". Coronavirus screen: Vaccine status: Patient reports being unvaccinated. Ebola Screen: No symptoms or risks identified at this time. Initial Sepsis Screen: Does the patient meet any 2 criteria? No. Patient's initial sepsis screen is negative. Does the patient have a suspected source of infection? No. Patient's initial sepsis screen is negative. Risk Assessment: Do you want to hurt yourself or someone else? Patient reports no desire to harm self or others. Onset of symptoms was July 15, 2022. 14:46 Method Of Arrival: Ambulatory 9 14:46 Acuity: MARTHA 4 mb9 Triage Assessment: 14:49 General: Appears in no apparent distress. Behavior is calm, cooperative, appropriate mb9 for age. Pain: Complains of pain in right hand Pain radiates to right arm Pain currently is 5 out of 10 on a pain scale. Quality of pain is described as throbbing, Pain began suddenly. Neuro: Raphael Agitation-Sedation Scale (RASS): 0 - Alert and Calm Level of Consciousness is awake, alert, obeys commands, Oriented to person, place, time, situation, Appropriate for age. Respiratory: Airway is patent Respiratory effort is even, unlabored, Respiratory pattern is regular, symmetrical. Musculoskeletal: Range of motion: limited in right wrist. Historical: - Allergies: 14:47 No Known Allergies; mb9 - Home Meds: 14:47 Metformin Oral [Active]; Insulin: Humalog Mix 75-25 Sub-Q [Active]; Lisinopril Oral mb9 [Active]; - PMHx: 14:47 Bipolar disorder; diabetes mellitus; Hypertensive disorder; Kidney stone; mb9 - PSHx: 14:47 jaw reconstruction; mb9 - Immunization history:: Adult Immunizations up to date. - Social history:: Smoking status: Reported history of juuling and/or vaping. Screenin:25 [facility] ED Fall Risk Assessment (Adult) History of falling in the last 3 months, iw including since admission. Abuse screen: Denies threats or abuse. Denies injuries from another. Nutritional screening: No deficits noted. Tuberculosis screening: No symptoms or risk factors identified. Assessment: 14:50 Reassessment: see triage assessment. mb9 16:00 General: Appears in no apparent distress. comfortable, Behavior is calm, cooperative. iw Neuro: Level of Consciousness is awake, alert, obeys commands, Oriented to person, place, time, situation, Moves all extremities. Full function. Respiratory: Respiratory effort is even, unlabored, Respiratory pattern is regular. Derm: Skin is intact, is healthy with good turgor. Musculoskeletal: Range of motion: intact in all extremities. 07/16 08:14 Reassessment:. iw Vital Signs: 07/15 14:46 BP 155 / 84; Pulse 93; Resp 18; Temp 98.4; Pulse Ox 100% ; Weight 92.99 kg; Height 6 mb9 ft. 3 in. ; Pain 5/10; 14:46 Body Mass Index 25.62 (92.99 kg, 190.5 cm) mb9 14:46 Pain Scale: Adult mb9 ED Course: 14:39 Patient arrived in ED. mr 14:41 Sonja Yañez FNP-C is PHCP. kb 14:41 Brenton Diallo MD is Attending Physician. kb 14:47 Triage completed. mb9 14:49 Arm band placed on. mb9 15:42 Forearm Right XRAY In Process Unspecified. EDMS 16:05 Kelly Pinto, RN is Primary Nurse. iw 16:25 No provider procedures requiring assistance completed. Patient did not have IV access iw during this emergency room visit. Administered Medications: 15:41 Drug: Ibuprofen PO 800 mg Route: PO; kb3 16:00 Follow up: Response: No adverse reaction; Pain is decreased iw 16:26 Drug: Hydrocodone-Acetaminophen PO (7.5 mg-325 mg) 1 tabs Route: PO; iw 16:36 Follow up: Response: No adverse reaction iw Outcome: 16:03 Discharge ordered by . kb 16:26 Patient left the ED. iw Signatures: Dispatcher [employer] EDMS Sonja Yañez FNP-C ROLLER BEARING INSPECTOR-Ckb Teofilo Connie Kelly Sheppard, RN RN iw Elsa Thompson, FABY RN kb3 Minnie, Connie Brown, RN RN mb9
--- NOTE | 2022-07-15 16:03 | EDPHYS ---
Physician Documentation [facility] Name: Sandeep Cowan Age: 46 yrs Sex: Male : 1975 Arrival Date: 07/15/2022 Time: 14:36 Bed DX3 Private MD: ED Physician Brenton Diallo HPI: 07/15 16:02 This 46 yrs old Male presents to ER via Ambulatory with complaints of Wrist kb Injury. 16:02 The patient or guardian reports an abrasion, decreased range of motion, pain, kb tenderness. The complaints affect the right wrist diffusely. Context: The problem was sustained at home, resulted from a direct blow, bed. Onset: The symptoms/episode began/occurred just prior to arrival. Modifying factors: The symptoms are alleviated by nothing, the symptoms are aggravated by movement. Associated signs and symptoms: The patient has no apparent associated signs or symptoms. The patient has not experienced similar symptoms in the past. The patient has not recently seen a physician. Historical: - Allergies: 14:47 No Known Allergies; mb9 - Home Meds: 14:47 Metformin Oral [Active]; Insulin: Humalog Mix 75-25 Sub-Q [Active]; Lisinopril Oral mb9 [Active]; - PMHx: 14:47 Bipolar disorder; diabetes mellitus; Hypertensive disorder; Kidney stone; mb9 - PSHx: 14:47 jaw reconstruction; mb9 - Immunization history:: Adult Immunizations up to date. - Social history:: Smoking status: Reported history of juuling and/or vaping. ROS: 15:57 Constitutional: Negative for fever, chills, and weight loss. kb 15:57 MS/extremity: Positive for decreased range of motion, pain, of the right forearm. 15:57 All other systems are negative. Exam: 15:57 Constitutional: This is a well developed, well nourished patient who is awake, alert, kb and in no acute distress. Head/Face: Normocephalic, atraumatic. ENT: Moist Mucous membranes Cardiovascular: Regular rate and rhythm with a normal S1 and S2. No gallops, murmurs, or rubs. No pulse deficits. Respiratory: Respirations even and unlabored. No increased work of breathing. Talking in full sentences Skin: Warm, dry with normal turgor. Normal color. Neuro: Awake and alert, GCS 15, oriented to person, place, time, and situation. Moves all extremities. Normal gait. 15:57 Musculoskeletal/extremity: Extremities: grossly normal except: noted in the right wrist: abrasion, decreased ROM, pain, tenderness, ROM: limited active range of motion due to pain, Circulation is intact in all extremities. Sensation intact. Vital Signs: 14:46 BP 155 / 84; Pulse 93; Resp 18; Temp 98.4; Pulse Ox 100% ; Weight 92.99 kg; Height 6 mb9 ft. 3 in. ; Pain 5/10; 14:46 Body Mass Index 25.62 (92.99 kg, 190.5 cm) mb9 14:46 Pain Scale: Adult mb9 MDM: 14:41 Patient medically screened. kb 16:01 Differential diagnosis: dislocation, closed fracture, contusion, abrasion. Data kb reviewed: vital signs, nurses notes. Counseling: I had a detailed discussion with the patient and/or guardian regarding: the historical points, exam findings, and any diagnostic results supporting the discharge/admit diagnosis, radiology results, the need for outpatient follow up, a family practitioner, to return to the emergency department if symptoms worsen or persist or if there are any questions or concerns that arise at home. 16:19 ED course: Pt states he recently moved here and is almost out of insulin. States he has kb not been able to find a new PCP yet. Requests refill of humalog 75/25 Kwikpen and gabapentin. 07/15 14:45 Order name: Forearm Right XRAY; Complete Time: 15:57 kb 07/15 16:03 Order name: Wrist Splint; Complete Time: 16:22 kb Administered Medications: 15:41 Drug: Ibuprofen PO 800 mg Route: PO; kb3 16:00 Follow up: Response: No adverse reaction; Pain is decreased iw 16:26 Drug: Hydrocodone-Acetaminophen PO (7.5 mg-325 mg) 1 tabs Route: PO; iw 16:36 Follow up: Response: No adverse reaction iw Disposition Summary: 07/15/22 16:03 Discharge Ordered Location: Home kb Condition: Stable kb Diagnosis - Contusion of right wrist kb Followup: kb - With: Emergency Department - When: As needed - Reason: Worsening of condition Followup: kb - With: Private Physician - When: 2 - 3 days - Reason: Recheck today's complaints, Continuance of care, Re-evaluation by your physician Discharge Instructions: - Discharge Summary Sheet kb - Contusion, Mbej-fu-Poon kb Forms: - Medication Reconciliation Form kb - Thank You Letter kb - Antibiotic Education kb - Prescription Opioid Use kb Prescriptions: - Humalog Mix 75-25 KwikPen 100 unit/mL (75-25) Subcutaneous Insulin Pen - inject 10 unit by SUBCUTANEOUS route 2 times per day; 1 pen; Refills: 0, kb Product Selection Permitted - Ibuprofen 800 mg Oral Tablet - take 1 tablet by ORAL route every 8 hours As needed take with food; 30 tablet; kb Refills: 0, Product Selection Permitted - Neurontin 300 mg Oral Capsule - take 1 capsule by ORAL route At bedtime; 20 capsule; Refills: 0, Product kb Selection Permitted Signatures: Dispatcher [employer] Sonja Carr, HIRE CAR DRIVER-C HIRE CAR DRIVER-Kelly Graham, RN FABY iw Elsa Thompson RN RN kb3 Connie Hartman RN RN mb9
[2022-07-15 16:30] VITALS: BP 155/84; TEMP 98.4; O2SAT 100
[2022-07-15] MEDS ORDERED: HYDROCODONE/APAP 7.5/325 MG TAB ONE (16:33)
== END 2022-07-15 16:26 | disposition home or self-care (01) ==
LOC: ER 14:36
DX: S60.211A Contusion of right wrist, initial encounter (principal)
CPT/HCPCS: 99283

== ENCOUNTER → 2023-02-22 | Emergency (ER) | payer SELFPAY ==
[~2023-02-22] MED LIST: INSULIN REGULAR (HUMAN) 100 UNIT/ML ONE; NA CHLORIDE 0.9% 1,000 ML ONE
--- OUTSIDE RECORDS SUMMARY | 2023-02-22 09:03 | XMS REPORT | Continuity of Care Document ---
Author Name Unknown Address [address] [facility] [address] [place] [address] [facility]connect Address [address] [facility] [address] [place] [address] Care Team Providers Care Machining Associate Name Role Phone CONRADO JIN Attending Clinician SEAN Rico Attending Clinician Unavailable KAYDEN OLIVARES Attending Clinician Unavailable ALIVIA GODDARD Attending Clinician Unavailable Payers Payer Name Policy Type Policy Number Effective Date Expirati on Date Source Encounters Start Date/Time End Date/Time Encounter Type Admission Type Attending Clinicians Care Facility Care Department Encounter ID Source 2022-09-04 09:45:02 2022-09-04 09:45:02 Outpatient [facility] [id number] Steve Roland 2022-05-26 10:39:29 2022-05-26 11:40:47 Outpatient CONRADO JIN [facility] [id number] [facility] 2022-05-26 09:47:00 2022-05-26 09:52:00 Emergency [facility] MED [id number] [facility] 2022-05-13 14:09:00 2022-05-13 14:10:00 Emergency [facility] MED [id number] [facility] 2022-05-08 04:52:00 2022-05-08 08:37:00 Emergency [facility] MED [id number] [facility] 2022-05-07 14:11:46 2022-05-07 14:56:02 Outpatient SEAN MORAN [facility] [id number] [facility] 2022-05-07 10:05:00 2022-05-07 10:12:00 Emergency [facility] MED [id number] [facility] 2022-05-06 14:49:11 2022-05-06 23:59:00 Outpatient KAYDEN OLIVARES [facility] [id number] [facility] 2022-05-04 16:40:00 2022-05-05 02:52:00 Emergency ALIVIA GODDARD [facility] [id number] [facility] 2022-05-04 15:23:01 2022-05-04 16:39:00 Outpatient [facility] [id number] [facility]
[2023-02-22 10:00] LABS: Specific Gravity > 1.030 (1.005-1.030); Urine Bilirubin NEGATIVE (Negative); Urine Blood Negative (Negative); Urine Clarity Clear (Clear); Urine Color Colorless (Yellow); Urine Glucose 4+ (Over) (Negative); Urine Protein NEGATIVE (Negative); Urine Urobilinogen Normal (Normal)
[2023-02-22 10:01] LABS: Hematocrit 48.8 % (39.6-49.0); Lymphocytes % 32.3 % (15.3-44.8); MCV 90.4 fL (80-100); MPV 8.8 fL (7.6-11.3); Platelets 218 thou/uL (152-406)
[2023-02-22 10:16] LABS: Albumin 3.6 g/dL (3.4-5.0); Bilirubin Direct 0.2 mg/dL (0-0.2); Bilirubin Indirect, Calculated 0.7 mg/dL (0.2-0.8); Bilirubin Total 0.9 mg/dL (0.2-1.0); Phosphorus 3.4 mg/dL (2.5-4.9); Potassium 4.2 mEq/L (3.5-5.1); Protein, Total 7.4 g/dL (6.4-8.2)
[2023-02-22 10:31] LABS: SARS-COV-2 RT PCR NEGATIVE (NEGATIVE)
--- NOTE | 2023-02-22 10:37 | EDPHYS ---
Physician Documentation [facility] Name: Sandeep Cowan Age: 47 yrs Sex: Male : 1975 Arrival Date: 02/22/2023 Time: : Bed 6 Private MD: ED Physician Jailene Nation HPI: 02/22 09:13 Pts whole body is feeling numb, he has diabetes and neuropathy, and hands especially gb1 are numb. Pt went to work this morning and wasn't able to feel his hands, and his vision was blurry this morning driving to work. He is also have pain in legs and hips. No fevers. Pt takes his insulin for diabetes, and does not check his blood sugars. His sugars have been running 300-400. Pt has been nauseated, no diarrhea.. 09:28 pt took 20u subcu insulin just prior to arrival. gb1 Historical: - Allergies: 09:11 No Known Allergies; iw - PMHx: 09:11 Bipolar disorder; diabetes mellitus; Hypertensive disorder; Kidney stone; iw - PSHx: 09: jaw reconstruction; iw - Immunization history:: Adult Immunizations not up to date. - Social history:: Smoking status: Patient denies any tobacco usage or history of. - Family history:: not pertinent. - Hospitalizations: : Patient was only seen in the emergency department. ROS: 09:13 Constitutional: Negative for fever, chills, and weight loss, gb1 09:13 Constitutional: Positive for Negative for 09:13 Eyes: Positive for blurry vision, Negative for acute changes, blurry vision, gb1 09:13 Eyes: 09:13 ENT: Negative for Exam: 09:13 Constitutional: The patient appears in no acute distress, alert, awake, gb1 09:13 Head/face: 09:13 Eyes: Exam is negative for 09:13 ENT: Exam is negative for 09:13 Neck: Exam negative for :13 Chest/axilla: Exam negative for :13 Cardiovascular: Exam negative for :13 Respiratory: Exam negative for the patient does not display signs of respiratory distress, Respirations: normal, Breath sounds: are clear throughout, 09:13 Abdomen/GI: Exam negative for discomfort, distension, guarding, Inspection: : Back: Exam negative for CVA tenderness, decreased ROM, deformity, 09:13 : Exam negative for acute changes, dysuria, 09:13 Musculoskeletal/extremity: Exam is negative for acute changes, abrasion, atrophy, 09:13 Skin: Exam negative for acute changes, obvious bony injury, 09:13 Neuro: Exam negative for acute changes, focal neuro deficits, motor deficits, 09:13 Psych: Exam negative for acute changes, 09:38 Constitutional: This is a well developed, well nourished patient who is awake, alert, gb1 and in no acute distress. Head/Face: Normocephalic, atraumatic. Eyes: Pupils equal round and reactive to light, extra-ocular motions intact. Lids and lashes normal. Conjunctiva and sclera are non-icteric and not injected. Cornea within normal limits. Periorbital areas with no swelling, redness, or edema. ENT: Nares patent. No nasal discharge, no septal abnormalities noted. Tympanic membranes are normal and external auditory canals are clear. Oropharynx with no redness, swelling, or masses, exudates, or evidence of obstruction, uvula midline. Mucous membranes moist. Neck: Trachea midline, no thyromegaly or masses palpated, and no cervical lymphadenopathy. Supple, full range of motion without nuchal rigidity, or vertebral point tenderness. No Meningismus. Chest/axilla: Normal chest wall appearance and motion. Nontender with no deformity. No lesions are appreciated. Cardiovascular: Regular rate and rhythm with a normal S1 and S2. No gallops, murmurs, or rubs. Normal PMI, no JVD. No pulse deficits. Respiratory: Lungs have equal breath sounds bilaterally, clear to auscultation and percussion. No rales, rhonchi or wheezes noted. No increased work of breathing, no retractions or nasal flaring. Abdomen/GI: Soft, non-tender, with normal bowel sounds. No distension or tympany. No guarding or rebound. No evidence of tenderness throughout. Back: No spinal tenderness. No costovertebral tenderness. Full range of motion. Skin: Warm, dry with normal turgor. Normal color with no rashes, no lesions, and no evidence of cellulitis. MS/ Extremity: Pulses equal, no cyanosis. Neurovascular intact. Full, normal range of motion. Neuro: Awake and alert, GCS 15, oriented to person, place, time, and situation. Cranial nerves II-XII grossly intact. Motor strength 5/5 in all extremities. Sensory grossly intact. Cerebellar exam normal. Normal gait. Vital Signs: 09:08 BP 131 / 100; Pulse 106; Resp 16; Pulse Ox 99% on R/A; Weight 90.72 kg; Height 6 ft. 3 iw in. ; Pain 6/10; 09:54 BP 139 / 105; Pulse 102; Resp 18; Pulse Ox 100% on R/A; mb9 10:37 BP 160 / 98; Pulse 94; Resp 18; Temp 97.8; Pulse Ox 98% on R/A; mb9 09:08 Body Mass Index 25.00 (90.72 kg, 190.5 cm) iw 09:08 Pain Scale: Adult iw MDM: 09:38 Differential diagnosis: DKA, uncontrolled diabetes with hyperglycemia c/b peripheral gb1 neuropathy, COVID, influenza. 10:08 Patient medically screened. ms3 10:32 Response to treatment: the patient's symptoms have mildly improved after treatment, gb1 Patient is improved after IV fluids.. ED course: I reviewed the patient's laboratory results and his glucose is 611. There is no anion gap at this time I doubt diabetic ketoacidosis. The patient's been noncompliant with his medication regimen and I have encouraged him to take his insulin as prescribed. Patient also has no primary care doctor which I did recommend want to manage his chronic disease of insulin-dependent diabetes mellitus. He is otherwise today awake and alert and at discharge understands his plan of care set forth. He is p.o. tolerant and appears nontoxic.. 02/22 09:20 Order name: Basic Metabolic Panel; Complete Time: 10:30 02/22 09:20 Order name: CBC with Diff; Complete Time: 10:30 02/22 09:20 Order name: Hepatic Function; Complete Time: 10:30 02/22 09:20 Order name: Lipase; Complete Time: 10:30 02/22 09:20 Order name: Magnesium; Complete Time: 10:30 02/22 09:20 Order name: Phosphorus; Complete Time: 10:30 02/22 09:22 Order name: COVID-19/FLU A+B; Complete Time: 10:32 02/22 09:25 Order name: Urinalysis w/ reflexes; Complete Time: 10:30 gb1 02/22 09:20 Order name: EKG; Complete Time: 09:20 gb02/22 09:20 Order name: Cardiac monitoring; Complete Time: 09:46 gb02/22 09:20 Order name: EKG - Nurse/Tech; Complete Time: 09:52 gb02/22 09:20 Order name: IV Saline Lock; Complete Time: 09:49 gb02/22 09:20 Order name: NPO; Complete Time: 09:46 gb02/22 09:20 Order name: O2 Per Protocol; Complete Time: 09:46 gb02/22 09:20 Order name: O2 Sat Monitoring; Complete Time: :46 gb Administered Medications: 09:49 Drug: NS 0.9% IV 1000 ml IV at 1000 ml once Route: IV; Rate: 1000 ml; Site: left ko1 forearm; 10:53 Follow up: Response: No adverse reaction; IV Status: Completed infusion mb9 10:40 Drug: Insulin Regular Human IVP 10 units IVP once {Co-Signature: estevan (Connie Hartman RN).} Route: IVP; Site: left forearm; 10:53 Follow up: Response: No adverse reaction mb9 Disposition Summary: 02/22/23 10:36 Discharge Ordered Notes: Location: Home gb1 Problem: chronic gb1 Symptoms: have improved gb1 Condition: Stable gb1 Diagnosis - Diabetes mellitus due to underlying condition with hyperglycemia gb1 - Other idiopathic peripheral autonomic neuropathy gb1 Followup: gb1 - With: Private Physician - When: Upon discharge from the Emergency Department - Reason: Re-evaluation by your physician Discharge Instructions: - Discharge Summary Sheet gb1 - Hyperglycemia gb1 - Neuropathic Pain gb1 Forms: - Work release form mb9 - Medication Reconciliation Form gb1 - Thank You Letter gb1 - Antibiotic Education gb1 - Prescription Opioid Use gb1 - Patient Portal Instructions gb1 - Leadership Thank You Letter gb1 Signatures: Dispatcher [employer] Kelly Feliciano, RN Micheal Wallace DO DO ms3 Noy Martin RN RN ko1 Blocker, Gina, MD MD gb1 Breneman, Mary Beth RN mb9 Connie Hartman RN9 Corrections: (The following items were deleted from the chart) 10:53 09:29 BETA HYDROXYBUTYRATE+RUFINABRZ ordered. gb1 mb9
--- NOTE | 2023-02-22 10:37 | ER ---
Nurse's Notes [facility] Name: Sandeep Cowan Age: 47 yrs Sex: Male : 1975 Arrival Date: 02/22/2023 Time: 09:01 Bed 6 Private MD: Diagnosis: Diabetes mellitus due to underlying condition with hyperglycemia;Other idiopathic peripheral autonomic neuropathy Presentation: 02/22 09:08 Chief complaint: Patient states: I'm a diabetic, my whole body is numb, my feet and iw hands and my vision is blurry, I feel miserable, I didn't get out of bed yesterday, I noticed the blurry vision this morning while I was driving to work this morning, I can't hold anything in my hands because they feel numb. Coronavirus screen: At this time, the client does not indicate any symptoms associated with coronavirus-19. Ebola Screen: Patient negative for fever greater than or equal to 101.5 degrees Fahrenheit, and additional compatible Ebola Virus Disease symptoms Patient denies exposure to infectious person. Patient denies travel to an Ebola-affected area in the 21 days before illness onset. No symptoms or risks identified at this time. Initial Sepsis Screen: Does the patient meet any 2 criteria? No. Patient's initial sepsis screen is negative. Does the patient have a suspected source of infection? No. Patient's initial sepsis screen is negative. Risk Assessment: Do you want to hurt yourself or someone else? Patient reports no desire to harm self or others. 09:08 Method Of Arrival: Ambulatory iw 09:08 Acuity: MARTHA 3 iw 09:55 Onset of symptoms was February 22, 2023. mb9 Historical: - Allergies: 09:11 No Known Allergies; iw - PMHx: 09:11 Bipolar disorder; diabetes mellitus; Hypertensive disorder; Kidney stone; iw - PSHx: 09:11 jaw reconstruction; iw - Immunization history:: Adult Immunizations not up to date. - Social history:: Smoking status: Patient denies any tobacco usage or history of. - Family history:: not pertinent. - Hospitalizations: : Patient was only seen in the emergency department. Screenin:52 [facility] ED Fall Risk Assessment (Adult) History of falling in the last 3 months, mb9 including since admission No falls in past 3 months (0 pts) Confusion or Disorientation No (0 pts) Intoxicated or Sedated No (0 pts) Impaired Gait No (0 pts) Mobility Assist Device Used No (0 pt) Altered Elimination No (0 pt) Score/Fall Risk Level 0 - 2 = Low Risk Oriented to surroundings, Maintained a safe environment, Educated pt \T\ family on fall prevention, incl call for assistance when getting out of bed. Abuse screen: Denies threats or abuse. Nutritional screening: No deficits noted. Tuberculosis screening: No symptoms or risk factors identified. Assessment: 09:53 General: Appears in no apparent distress. Behavior is calm, cooperative. Pain: Denies mb9 pain. Neuro: Raphael Agitation-Sedation Scale (RASS): 0 - Alert and Calm Level of Consciousness is awake, alert, obeys commands, Oriented to person, place, time, situation, Appropriate for age Pupils are PERRLA, Reports blurred vision dizziness. Cardiovascular: Heart tones S1 S2 present Patient's skin is warm and dry. Respiratory: Airway is patent Respiratory effort is even, unlabored, Respiratory pattern is regular, symmetrical. GI: Abdomen is round non-distended, Bowel sounds present X 4 quads. Abd is soft and non tender X 4 quads. Patient currently denies nausea, vomiting. : No signs and/or symptoms were reported regarding the genitourinary system. EENT: No signs and/or symptoms were reported regarding the EENT system. Derm: Skin is pink, warm \T\ dry. Musculoskeletal: Range of motion: intact in all extremities. 10:52 Reassessment: No changes from previously documented assessment. Patient and/or family mb9 updated on plan of care and expected duration. Pain level reassessed. Patient is alert, oriented x 3, equal unlabored respirations, skin warm/dry/pink. Vital Signs: 09:08 BP 131 / 100; Pulse 106; Resp 16; Pulse Ox 99% on R/A; Weight 90.72 kg; Height 6 ft. 3 iw in. ; Pain 6/10; 09:54 BP 139 / 105; Pulse 102; Resp 18; Pulse Ox 100% on R/A; mb9 10:37 BP 160 / 98; Pulse 94; Resp 18; Temp 97.8; Pulse Ox 98% on R/A; mb9 09:08 Body Mass Index 25.00 (90.72 kg, 190.5 cm) iw 09:08 Pain Scale: Adult iw ED Course: 09:02 Patient arrived in ED. rg4 09:09 Jailene Nation MD is Attending Physician. gb1 09:11 Triage completed. iw 09:11 Arm band placed on. iw 09:46 Connie Hartman, RN is Primary Nurse. mb9 09:49 Basic Metabolic Panel Sent. ko1 09:49 CBC with Diff Sent. ko1 09:50 Hepatic Function Sent. ko1 09:50 Lipase Sent. ko1 09:50 Magnesium Sent. ko1 09:50 Phosphorus Sent. ko1 09:50 COVID-19/FLU A+B Sent. ko1 09:50 Urinalysis w/ reflexes Sent. ko1 09:52 Placed in gown. Bed in low position. Call light in reach. Side rails up X 1. Client mb9 placed on continuous cardiac and pulse oximetry monitoring. NIBP monitoring applied. cardiac monitor technician on. Door closed. Noise minimized. Warm blanket given. 09:54 No provider procedures requiring assistance completed. Inserted saline lock: 20 gauge mb9 in left forearm, using aseptic technique. 09:54 EKG done, by ED staff, reviewed by Jailene Nation MD. mb9 10:23 Notified ED physician of a critical lab result(s). Glucose 611. mb9 10:52 IV discontinued, intact, bleeding controlled, No redness/swelling at site. Pressure mb9 dressing applied. Administered Medications: 09:49 Drug: NS 0.9% IV 1000 ml IV at 1000 ml once Route: IV; Rate: 1000 ml; Site: left ko1 forearm; 10:53 Follow up: Response: No adverse reaction; IV Status: Completed infusion mb9 10:40 Drug: Insulin Regular Human IVP 10 units IVP once {Co-Signature: estevan (Connie Hartman RN).} Route: IVP; Site: left forearm; 10:53 Follow up: Response: No adverse reaction mb9 Medication: 09:52 VIS not applicable for this client. mb9 Outcome: 10:36 Discharge ordered by . gb1 10:52 Discharged to home ambulatory, with family, mb9 10:52 Condition: stable 10:52 Discharge instructions given to patient, family, Instructed on discharge instructions, follow up and referral plans. Demonstrated understanding of instructions, follow-up care, 10:53 Patient left the ED. mb9 Signatures: Kelly Pinto, RN RN Allegra Willard rg4 Noy Martin, FABY RN ko1 Connie Hartman RN RN mb9 Jailene Nation MD MD gb1 Connie Hartman RN mb9 Corrections: (The following items were deleted from the chart) 10:53 09:30 BETA HYDROXYBUTYRATE+C.LAB.BRZ drawn and sent. 1 mb9 10:53 10:37 BP 160 / 98; Pulse 94bpm; Resp 18bpm; Pulse Ox 98% RA; mb9 mb9
[2023-02-22 11:20] VITALS: BP 160/98; O2SAT 98
[2023-02-22 11:21] VITALS: TEMP 97.8
--- NOTE | 2023-02-23 17:13 | EKG ---
Test Date: 2023-02-22 Test Time: 09:54:06 Print Project Manager: MCKINLEY MEASUREMENT RESULTS: Intervals: Rate: 101 [place]: 134 QRSD: 90 QT: 344 QTc: 446 [place]: P: 60 [place]: 134 QRS: 52 T: 51 INTERPRETIVE STATEMENTS: Sinus tachycardia Right atrial enlargement Borderline ECG No previous ECG available for comparison Electronically Signed On 02-23-23 17:10:50 [employer]INEYARD SUPERVISOR by Fidel Cooley
== END ==
LOC: ER 09:01
DX: G90.09 Other idiopathic peripheral autonomic neuropathy (principal); E08.65 Diabetes mellitus due to underlying condition with hyperglycemia
CPT/HCPCS: 0240U; 36415; 80048; 80076; 81003; 83690; 83735; 84100; 85025; 93005; 96361; 96374; 99285; J1815; J7030